=== PATIENT | male | born 1950 | race Caucasian/White ===

== ENCOUNTER 2016-10-08 11:47 | Observation (INO) | payer MEDICARE, BC ==
--- NOTE | ~2016-10-08 | OP ---
Record Of Operation [facility] [address] [place]. [address] NAME: RACHAEL DIETZ : 46 STATUS : ADM Blaise PAT#: [id number] AGE: 66 ADM/REG DATE : 10/08/16 MR#: [id number] REPORT SERV DATE: 10/09/16 DICTATED BY: MOISES RIZZO DATE: 10/09/16 REPORT STATUS : Draft TRANSCRIBED BY: MODDanette DATE: 10/09/16 DATE OF PROCEDURE: 10/08/2016 PREOPERATIVE DIAGNOSES: Recurrent ischemia, right lower extremity, with severe claudication, and occasional rest pain, due to atherosclerosis. POSTOPERATIVE DIAGNOSES: Recurrent ischemia, right lower extremity, with severe claudication, and occasional rest pain, due to atherosclerosis. PROCEDURE: 1. Ultrasound-guided antegrade access, right common femoral artery. 2. Right leg arteriogram. 3. AngioJet thrombectomy, right superficial femoral artery, popliteal artery, tibioperoneal trunk, and posterior tibial artery. 4. Rotational atherectomy of the right proximal superficial femoral artery and popliteal artery (Jetstream 2.4/3.4 catheter). 5. Drug-coated balloon angioplasty, right popliteal artery and tibioperoneal trunk. 6. Percutaneous angioplasty of the right anterior tibial and posterior tibial arteries (3 mm x 150 mm Guillermo Balloon). SURGEON: Moises Rizzo M.D. ANESTHESIA: Local with MAC. ESTIMATED BLOOD LOSS: 50 mL. CONTRAST: 178 mL. IV FLUIDS: 1800 mL. COMPLICATIONS: None. INDICATION: Mr. Dietz is a 66-year-old man, with a long-standing peripheral arterial disease, due to atherosclerosis. He has developed recurrent symptoms in the right leg with severe claudication interfering with his daily activities, and occasional rest pain in his foot. He is recommended for arteriogram and percutaneous intervention. DETAILS OF PROCEDURE: After informed consent was obtained, the patient was brought to the endovascular suite, and placed in supine position. After administration of IV sedation, he was prepped and draped in usual sterile fashion. A time-out was performed. I commenced the procedure with ultrasound examination of the right common femoral artery. Antegrade access was planned, due to common iliac stents that extend into the abdominal aorta. Using ultrasound guidance, I accessed with a micropuncture needle and passed a micropuncture wire, confirmed within the SFA under fluoroscopy. With some difficulty, due to the scar tissue and his obesity, I placed a micropuncture sheath. I then placed an Amplatz wire. Over the Amplatz wire, again with some difficulty I able placed a 5-Lao sheath. We systemically Record Of Operation [facility] [address] [place] [address] NAME: RACHAEL DIETZ : 46 STATUS : ADM Blaise PAT#: [id number] AGE: 66 ADM/REG DATE : 10/08/16 MR#: [id number] REPORT SERV DATE: 10/09/16 DICTATED BY: MOISES RIZZO DATE: 10/09/16 REPORT STATUS : Draft TRANSCRIBED BY: MODL DATE: 10/09/16 heparinized. I performed contrast injection through the 5-Lao sheath which shows a patent common femoral and deep femoral artery. The SFA was occluded throughout its length. There were stents in place in the proximal and distal SFA which were occluded as well. The popliteal artery was occluded. There was [id number] distal runoff visible from injection in the common femoral artery. After that, I used a geoffrey 2 and a Glidewire to pass through the occluded SFA and popliteal arteries. This was fairly easily done indicative of at least some moderately acute thrombus. Once I got the catheter below the knee, contrast injection shows a patent tibioperoneal trunk with fairly significant stenosis. The posterior tibial artery was occluded proximally, but patent distally. This appears to be the dominant runoff vessel. After that, I placed the Amplatz wire and then placed a 7-Lao sheath. I then exchanged for a Bentson wire. I advanced the Bentson wire down the posterior tibial artery. I then used an AngioJet catheter and performed Pulse-Highwood with diluted tPA throughout the SFA, popliteal artery, tibioperoneal trunk, and posterior tibial artery. This was allowed to dwell for full 20 minutes. I then performed AngioJet thrombectomy of those same segment. Repeat contrast injection now shows patency with some significant residual stenosis in the popliteal artery at the knee, as well as the origin of the SFA. There was also some fairly significant vasospasm in the distal posterior tibial artery. After that, I placed a 4-mm Spider filter in the tibioperoneal trunk for embolic protection. I then performed rotational atherectomy in the areas of significant residual stenosis in the popliteal artery and the origin of the SFA with the Jetstream 2.4/3.4 atherectomy catheter. Repeat contrast injection shows improvement in the flow lumen. There was no residual stenosis in the origin of the SFA. There was mild residual stenosis in the popliteal artery. I performed balloon angioplasty in the popliteal artery with a 5 mm balloon. I then performed drug-coated balloon angioplasty with a 6 mm balloon. I performed balloon angioplasty in the tibioperoneal trunk. I then used drug coated balloon angioplasty in the tibioperoneal trunk with a 480 balloon. This resulted in dramatic improvement in all these segments. There was still some stenosis and/or vasospasm in the posterior tibial artery. I directly administered dilute nitroglycerin. I also performed balloon angioplasty in the posterior tibial artery with a 3 mm x 150 mm Guillermo balloon. It should be mentioned this is after removal of the embolic protection device. The posterior tibial arteries improved in appearance and now patent. I also noted at this point, was reconstitution the anterior tibial artery. It was occluded at its origin, but was a fairly decent caliber vessel beyond that. As a result, I used a NaviCross and a Glidewire to engage the anterior tibial artery. I then exchanged for V18 wire and performed balloon angioplasty in the anterior tibial artery with a 3 mm balloon. This now results in wide patency of the anterior tibial artery throughout its length and it was indeed a good caliber runoff vessel distally and was in continuity at least to the fore foot. At this point, we now had reasonable two-vessel runoff. I did repeat administration of some diluted nitroglycerin in the distal posterior tibial artery, due to recurrent vasospasm. Overall, angiographic appearance was quite good. After that, I performed right femoral artery arteriogram. This showed the puncture site in the mid common femoral artery. ProGlide closure device was deployed for hemostasis. The patient tolerated the procedure well without complications. Twenty-two modifier is added, due to the nearly three-hours of work required for revascularization. Additional difficultly was also encountered, due to the necessity of antegrade access in an obese patient with significant scar tissue in his right groin. In addition the near constant movement also added to the increased difficulty. Record Of Operation [facility] [address] [facility] [place]. [address] NAME: RACHAEL DIETZ JEAN : 46 STATUS : ADM Blaise PAT#: [id number] AGE: 66 ADM/REG DATE : 10/08/16 MR#: [id number] REPORT SERV DATE: 10/09/16 DICTATED BY: MOISES RIZZO. DATE: 10/09/16 REPORT STATUS : Draft TRANSCRIBED BY: MARGIE DATE: 10/09/16 ELBA/MARGIE Moises Rizzo M.D. / [id number] CC: Jada Higginbotham AZHAR S.
[~2016-10-08 11:47] MED LIST: ADVIL MIGRAI200 MG PO; ADVIL PO; AMARYL4 PO; ASA5GR PO; ASAB PO; ATEN25 PO; ELIQUIS 5 MG TAB5 MG PO; FENOFIBRATE; FORTAMET1000 MG PO; GLUCPH PO; HCTZ25B PO; HYDROCODONE; PCET PO; PLAVIX PO; PRAVAC PO; PRAVACHOL80 MG PO; PRIN20 PO; RYTHMOL150 MG PO; VOLT75 PO
[2016-10-09 07:21] LABS: BUN (BLOOD UREA NITROGEN) 18 MG/DL (6-23); CALCIUM, SERUM 7.9 MG/DL (8.5-10.4); CHLORIDE, SERUM 103 MMOL/L (96-112); CO2 (CARBON DIOXIDE) 26 MMOL/L (24-34); GFR AFRICAN AMERICAN 72 ML/MIN (>=60); GFR NON AFRICAN AMERICAN 62 ML/MIN (>=60); GLUCOSE, SERUM 149 MG/DL (60-99); POTASSIUM, SERUM 4.3 MMOL/L (3.5-5.3); SODIUM, SERUM 138 MMOL/L (135-148)
[2016-10-09] MEDS ORDERED: PLAVIX PO (09:59)
== END 2016-10-09 11:36 | disposition home or self-care (01) ==
LOC: SDC 11:47 → SDC/OF 18:04 → 1SO 19:53
PROVIDERS: Surgery
PROC: 047K3Z1 Dilation of Right Femoral Artery using Drug-Coated Balloon, Percutaneous Approach (ICD-10-PCS; principal; 2016-10-08 13:15)
PROC: 047P3ZZ Dilation of Right Anterior Tibial Artery, Percutaneous Approach (ICD-10-PCS; 2016-10-08 13:15)
PROC: 04CK3ZZ Extirpation of Matter from Right Femoral Artery, Percutaneous Approach (ICD-10-PCS; 2016-10-08 13:15)
PROC: 04CM3ZZ Extirpation of Matter from Right Popliteal Artery, Percutaneous Approach (ICD-10-PCS; 2016-10-08 13:15)
DX: I77.1 Stricture of artery (principal); I10 Essential (primary) hypertension; I48.91 Unspecified atrial fibrillation; Z86.711 Personal history of pulmonary embolism; E11.9 Type 2 diabetes mellitus without complications; G47.33 Obstructive sleep apnea (adult) (pediatric); Z99.89 Dependence on other enabling machines and devices; Z79.01 Long term (current) use of anticoagulants; Z79.82 Long term (current) use of aspirin
CPT/HCPCS: 37184; 37225; 37228; 37232; 75710; 80048; 82962; 85730; 96374; A9270-GY; C1714; C1725; C1757; C1760; C1769; C1887; C1894; C2623; G0378; J0690; J2250; J2997; J3010; Q9967